=== PATIENT | male | born 1950 | race Caucasian/White ===

== ENCOUNTER 2018-11-28 13:59 | Emergency (ER) | payer SELFPAY ==
[~2018-11-28] VITALS: Ht 170.2 cm; Wt 81.6 kg
[2018-11-28 14:07] VITALS: Ht 170.2 cm; Wt 81.6 kg
[2018-11-28 16:24] VITALS: BP 121/72
== END 2018-11-28 16:24 | disposition home or self-care (01) ==
LOC: ED 13:59
DX: F10.129 Alcohol abuse with intoxication, unspecified (principal); Y90.9 Presence of alcohol in blood, level not specified